=== PATIENT | male | born 1985 | race Caucasian/White ===

== ENCOUNTER 2016-11-30 11:38 | Inpatient (IN) | payer BC ==
[2016-11-30] MEDS ORDERED: Temazepam 15 MG Cap PO PRN (12:24)
[2016-11-30] MEDS ORDERED: Acetaminophen 325 MG Tab PO PRN ×2 (12:24→12:36)
[2016-11-30] MEDS ORDERED: Ondansetron 4 MG/2 ML SDV IV PRN (12:24)
[2016-11-30] MEDS: Lactated Ringers 1,000 ML IV SCH ×2 (13:04→20:26)
[2016-11-30] MEDS: methylPREDNISolone Sodium Succinate 125 MG/2 ML SDV IVPUSH SCH (13:07)
[2016-11-30] MEDS: cefTRIAXone 2 GM Vial IVPUSH SCH (13:11)
[2016-11-30] MEDS ORDERED: Enoxaparin 40 MG/0.4 ML Syringe SUBCUT SCH (14:00)
[2016-11-30] MEDS ORDERED: Ketorolac 30 MG/ML SDV IVPUSH PRN (20:33)
[2016-12-01] MEDS: methylPREDNISolone Sodium Succinate 125 MG/2 ML SDV IVPUSH SCH ×2 (01:06→11:09)
[2016-12-01] MEDS: Lactated Ringers 1,000 ML IV SCH (05:15)
[2016-12-01 07:39] LABS: CHLORIDE,CL 103 mEq/L (98-106); SODIUM,NA 142 mEq/L (136-145)
[2016-12-01 08:29] VITALS: BP 156/81
[2016-12-01] MEDS: cefTRIAXone 2 GM Vial IVPUSH SCH (11:09)
--- NOTE | 2016-12-04 06:59 | DISCH ---
ADMISSION DIAGNOSIS: Acute tonsillitis. DISCHARGE DIAGNOSIS: ACUTE TONSILLITIS. HISTORY: The patient is a 31-year-old male, who presented with acute pharyngeal pain and had massive tonsillitis. He had elevated white count to 18,000 with CRP of 39. He has not been able to eat or drink for few days. Jorge Arshad elected to admit him to hospital for IV antibiotics, steroids, and IV fluids. He did have a negative monospot on admit. HOSPITAL COURSE: The patient has done well while here. He has had a T-max of 99.5 at the time of admission. He has essentially been afebrile since. His vitals have been stable. He is breathing well. He is able to drink without much problem. He is able to talk to me in a day. His throat does show massive tonsillitis with diffuse exudate, but no obvious peritonsillar abscesses are seen. Cervical adenopathy really looks like it is diminished. The rest exam was normal. Clinically, he is doing well. He feels comfortable going home. He will have another dose of Solu-Medrol and Rocephin at noon today and we are going to send him home on an outpatient course of Augmentin and prednisone. Further question, the patient does reveal that he does snore quite heavily and has had about once a year episode of this tonsillitis and we will see him back in clinic in 2 weeks and we will contemplate and consider ENT referral for tonsillectomy due to recurrent tonsillitis and likely sleep apnea. COMPLICATIONS: During the stay were none. CONSULTATIONS: None. DISPOSITION: Discharged home. BISI /[id number]
== END 2016-12-01 11:35 | disposition home or self-care (01) | DRG 113 ==
LOC: CC.MS 11:38 → UNDOADMIN 11:38 → CC.MS 12:24
PROVIDERS: ADMIT Physician Assistant Medical; ATTEND Family Medicine
DX: J03.90 Acute tonsillitis, unspecified (principal); E66.9 Obesity, unspecified; Z68.39 Body mass index [BMI] 39.0-39.9, adult
CPT/HCPCS: 36415; 80048; 85025; 86140; 86308; A9270-GY; J0696; J1650; J1885; J2930; J7120